=== PATIENT | female | born 1950 | race Caucasian/White ===

== ENCOUNTER 2022-01-22 10:25 | Inpatient (IN) ==
[2022-01-22 10:46] LABS: ABS Basophils 0.1 10^3/ul (0-0.2); ABS Lymphocytes 1.3 10^3/ul (1.0-4.8); ABS Monocytes 0.4 10^3/ul (0-0.8); ABS Neutrophils 2.8 10^3/ul (1.5-7.7); Eosinophil % 0.9 %; Hematocrit 47 % (35-47); Hemoglobin 15.4 g/dL (12.0-16.0); Lymphocyte % 27.7 %; Mean Corpuscular HGB Conc 33 g/dL (31-36); Mean Corpuscular Hemoglobin 29 pg (27-31); Mean Corpuscular Volume 88 fL (80-97); Mean Platelet Volume 10.3 fL (7.4-10.4); Platelet Count 197 10^3/uL (150-450); Red Blood Count 5.29 10^6 /uL (3.70-4.87); Red Cell Distribution Width 16 % (10-15); White Blood Count 4.6 10^3/uL (3.5-10.8)
[2022-01-22] MEDS ORDERED: Midazolam 5 mg/5 ml VIAL 1 mg/ml 5 ml VIAL (5 mg) ONE (10:58)
[2022-01-22] MEDS ORDERED: Heparin 1,000 UNIT/ML 10 ml (10,000 UNITS) CATHLAB/DIALYSIS ONE ×3 (10:59→11:22)
[2022-01-22] MEDS ORDERED: fentaNYL 100 mcg/2 ml 50 MCG/ML VIAL ONE (10:59)
[2022-01-22] MEDS ORDERED: VERAPAMIL 2.5 MG/ML 2 ML VIAL ** 5 mg/2 ml ONE (10:59)
[2022-01-22] MEDS ORDERED: Iohexol 350 (CONTRAST) 200 ML MDV IV ONE (10:59)
[2022-01-22] MEDS ORDERED: nitroGLYCERIN DRIP 25,000 MCG/250 ML BTL ONE (10:59)
[2022-01-22] MEDS ORDERED: Heparin 2 UNITS/ML 1000 mls 3,000 ML IV ONE (10:59)
[2022-01-22] MEDS ORDERED: Lidocaine 1% MPF 5 ML VIAL ONE (11:06)
[2022-01-22] MEDS ORDERED: Bivalirudin 250 MG VIAL ONE (11:17)
[2022-01-22 11:24] LABS: Albumin 4.1 g/dL (3.2-5.2); Albumin/Globulin Ratio 1.1 (1-3); Calcium 9.2 mg/dL (8.6-10.3); Globulin 3.9 g/dL (2-4); Magnesium 1.8 mg/dL (1.9-2.7); Potassium 4.3 mmol/L (3.5-5.0); Total Bilirubin 0.9 mg/dL (0.2-1.0); eGFR CKD-EPI 76.6 (>60)
[2022-01-22] MEDS ORDERED: Ondansetron 4 mg VIAL 2 MG/ML 2 ml VIAL ONE (12:38)
[2022-01-22] MEDS ORDERED: Norepinephrine 16MCG/ML BAG NS 0 MCG/0 ML BAG IV ONE (12:41)
[2022-01-22] MEDS ORDERED: DOPamine 800 MG/250 ML IVPREM 800 MG/250 ML ML CENTR ONE (12:53)
[2022-01-22] MEDS ORDERED: Atropine 0.1 MG/ML 10 ml SYR (1 mg) ONE (13:13)
[2022-01-22] MEDS ORDERED: NS 0.9% 1000 ml BAG 1,000 ML IV SCH (14:00)
[2022-01-23 04:00] LABS: ABS Basophils 0.1 10^3/ul (0-0.2); ABS Lymphocytes 1.2 10^3/ul (1.0-4.8); ABS Monocytes 0.8 10^3/ul (0-0.8); ABS Neutrophils 3.7 10^3/ul (1.5-7.7); Eosinophil % 0.4 %; Hematocrit 37 % (35-47); Hemoglobin 12.1 g/dL (12.0-16.0); Lymphocyte % 20.7 %; Mean Corpuscular HGB Conc 33 g/dL (31-36); Mean Corpuscular Hemoglobin 29 pg (27-31); Mean Corpuscular Volume 86 fL (80-97); Mean Platelet Volume 9.9 fL (7.4-10.4); Platelet Count 156 10^3/uL (150-450); Red Blood Count 4.24 10^6 /uL (3.70-4.87); Red Cell Distribution Width 15 % (10-15); White Blood Count 5.8 10^3/uL (3.5-10.8)
[2022-01-23 04:34] LABS: Calcium 8.6 mg/dL (8.6-10.3); HDL Cholesterol 41.9 mg/dL; Potassium 3.5 mmol/L (3.5-5.0); eGFR CKD-EPI 92.6 (>60)
[2022-01-23] MEDS ORDERED: Potassium Chloride LIQUID 20 MEQ/15 ML LIQUID PO ONE (05:11)
[2022-01-23 05:36] LABS: Magnesium 1.6 mg/dL (1.9-2.7)
[2022-01-23] MEDS ORDERED: Magnesium Sulfate 2 gm BAG 2 GM/50 ML BAG IVPB ONE (05:41)
[2022-01-23] MEDS ORDERED: Perflutren Lipid Microsphere 3 ML VIAL ONE (09:58)
[2022-01-24 04:37] LABS: ABS Lymphocytes 0.9 10^3/ul (1.0-4.8); ABS Monocytes 0.9 10^3/ul (0-0.8); ABS Neutrophils 4.6 10^3/ul (1.5-7.7); Eosinophil % 0.1 %; Hematocrit 39 % (35-47); Hemoglobin 13.1 g/dL (12.0-16.0); Lymphocyte % 14.4 %; Mean Corpuscular HGB Conc 33 g/dL (31-36); Mean Corpuscular Hemoglobin 29 pg (27-31); Mean Corpuscular Volume 87 fL (80-97); Mean Platelet Volume 10.6 fL (7.4-10.4); Platelet Count 150 10^3/uL (150-450); Red Blood Count 4.48 10^6 /uL (3.70-4.87); Red Cell Distribution Width 15 % (10-15); White Blood Count 6.5 10^3/uL (3.5-10.8)
[2022-01-24 10:05] LABS: Urine Appearance Cloudy; Urine Bilirubin Negative (Negative); Urine Blood Negative (Negative); Urine Color Yellow; Urine Glucose Negative (Negative); Urine Ketones Negative (Negative); Urine Nitrite Negative (Negative); Urine Protein Negative (Negative); Urine Specific Gravity 1.013 (1.002-1.030); Urine Urobilinogen Negative (Negative)
[2022-01-24 10:12] LABS: Rapid COVID-19 Molecular Undetected (Undetected)
[2022-01-24 11:50] VITALS: BP 108/57
== END 2022-01-24 14:10 | disposition home or self-care (01) | DRG 247 ==
LOC: EDSEX → ED 10:25 → CHICATH 11:11 → MERGE 14:06 → ICU 14:06 → MEDTELE 01-23 18:33
PROVIDERS: ATTEND Internal Medicine Cardiovascular Disease

== ENCOUNTER 2022-01-26 15:40 | Inpatient (IN) ==
[2022-01-26 16:41] LABS: ABS Lymphocytes 0.8 10^3/ul (1.0-4.8); ABS Monocytes 0.8 10^3/ul (0-0.8); ABS Neutrophils 3.4 10^3/ul (1.5-7.7); Eosinophil % 0.4 %; Hematocrit 35 % (35-47); Hemoglobin 11.6 g/dL (12.0-16.0); Mean Corpuscular HGB Conc 33 g/dL (31-36); Mean Corpuscular Hemoglobin 29 pg (27-31); Mean Corpuscular Volume 89 fL (80-97); Platelet Count 151 10^3/uL (150-450); Red Blood Count 3.99 10^6 /uL (3.70-4.87); Red Cell Distribution Width 15 % (10-15); White Blood Count 5.1 10^3/uL (3.5-10.8)
[2022-01-26 17:12] LABS: ALT 19 U/L (7-52); AST 28 U/L (13-39); Albumin 3.8 g/dL (3.2-5.2); Albumin/Globulin Ratio 1.2 (1-3); Alkaline Phosphatase 77 U/L (35-149); Anion Gap 9 mmol/L (2-11); Blood Urea Nitrogen 14 mg/dL (6-24); C Reactive Protein 109.74 mg/L (<8.01); CO2 Carbon Dioxide 23 mmol/L (22-32); Calcium 8.5 mg/dL (8.6-10.3); Chloride 99 mmol/L (101-111); Globulin 3.3 g/dL (2-4); Glucose 95 mg/dL (70-100); Potassium 3.2 mmol/L (3.5-5.0); Sodium 131 mmol/L (135-145); Total Protein 7.1 g/dL (6.4-8.9); eGFR CKD-EPI 91.3 (>60)
[2022-01-26] MEDS ORDERED: Potassium Chlor 20 meq TAB.ER PO ONE (17:56)
[2022-01-26 20:15] LABS: High Sensitivity Troponin 1 Hr 2478 pg/mL (<15)
[2022-01-26 21:20] LABS: Alcohol, S < 13 mg/dL (<13)
[2022-01-26] MEDS: Enoxaparin 40 MG/0.4 ML SYR SUBCUT SCH (22:11)
[2022-01-26 22:14] LABS: Magnesium 1.9 mg/dL (1.9-2.7)
[2022-01-26 22:19] LABS: Creatine Kinase 50 U/L (10-223)
[2022-01-26] MEDS ORDERED: Magnesium Sulfate 2 gm BAG 2 GM/50 ML BAG IVPB ONE (22:21)
[2022-01-26 22:27] LABS: High Sensitivity Troponin 3 Hr 2529 pg/mL (<15)
[2022-01-27 00:44] LABS: Erythrocyte Sed Rate 61 mm/Hr (0-29)
[2022-01-27 06:12] LABS: ABS Lymphocytes 0.8 10^3/ul (1.0-4.8); ABS Monocytes 0.7 10^3/ul (0-0.8); Eosinophil % 0.3 %; Hematocrit 35 % (35-47); Hemoglobin 11.5 g/dL (12.0-16.0); Lymphocyte % 17.1 %; Mean Corpuscular HGB Conc 33 g/dL (31-36); Mean Corpuscular Hemoglobin 29 pg (27-31); Mean Corpuscular Volume 87 fL (80-97); Mean Platelet Volume 11.3 fL (7.4-10.4); Platelet Count 150 10^3/uL (150-450); Red Blood Count 3.98 10^6 /uL (3.70-4.87); Red Cell Distribution Width 15 % (10-15); White Blood Count 4.6 10^3/uL (3.5-10.8)
[2022-01-27 06:20] LABS: Calcium 8.6 mg/dL (8.6-10.3); Magnesium 2.3 mg/dL (1.9-2.7); Potassium 4.2 mmol/L (3.5-5.0); eGFR CKD-EPI 92.9 (>60)
[2022-01-27 10:20] LABS: Urine Appearance Clear; Urine Bilirubin Negative (Negative); Urine Blood Negative (Negative); Urine Color Yellow; Urine Glucose Negative (Negative); Urine Ketones Trace (Negative); Urine Nitrite Negative (Negative); Urine Protein Negative (Negative); Urine Specific Gravity 1.012 (1.002-1.030); Urine Urobilinogen Negative (Negative)
[2022-01-27] MEDS ORDERED: Nicotine PATCH 7 MG/24 HR PATCH TRANSDERM SCH (11:00)
[2022-01-27] MEDS ORDERED: Nicotine GUM 4MG FRUIT FLAVOR PO PRN (11:11)
[2022-01-27] MEDS ORDERED: Perflutren Lipid Microsphere 3 ML VIAL ONE (13:45)
[2022-01-27] MEDS: Nicotine PATCH 21 MG/24 HR PATCH TRANSDERM SCH (18:03)
[2022-01-27] MEDS: Enoxaparin 40 MG/0.4 ML SYR SUBCUT SCH (21:25)
[2022-01-28 06:06] LABS: ABS Lymphocytes 1.1 10^3/ul (1.0-4.8); ABS Monocytes 0.6 10^3/ul (0-0.8); ABS Neutrophils 1.9 10^3/ul (1.5-7.7); Eosinophil % 1.1 %; Hematocrit 36 % (35-47); Hemoglobin 11.6 g/dL (12.0-16.0); Lymphocyte % 30.8 %; Mean Corpuscular HGB Conc 32 g/dL (31-36); Mean Corpuscular Hemoglobin 28 pg (27-31); Mean Corpuscular Volume 88 fL (80-97); Mean Platelet Volume 10.7 fL (7.4-10.4); Nucleated Red Blood Cells % 0.2; Platelet Count 175 10^3/uL (150-450); Red Blood Count 4.07 10^6 /uL (3.70-4.87); Red Cell Distribution Width 15 % (10-15); White Blood Count 3.7 10^3/uL (3.5-10.8)
[2022-01-28 06:46] LABS: Calcium 8.8 mg/dL (8.6-10.3); Magnesium 1.9 mg/dL (1.9-2.7); Potassium 4.2 mmol/L (3.5-5.0); eGFR CKD-EPI 92.2 (>60)
[2022-01-28] MEDS ORDERED: Nicotine PATCH 21 MG/24 HR PATCH TRANSDERM SCH (08:00)
[2022-01-28 08:36] VITALS: BP 126/63
[2022-01-28] MEDS: Nicotine PATCH 21 MG/24 HR PATCH TRANSDERM SCH (08:48)
[2022-01-30 09:05] LABS: Complement C3 113 mg/dL (75 - 175)
== END 2022-01-28 12:50 | disposition home or self-care (01) | DRG 315 ==
LOC: ED 15:40 → SUATTDRO 21:42 → EDHOLD 21:42 → MEDTELE 01-27 00:31
PROVIDERS: ADMIT Internal Medicine; ATTEND Internal Medicine

== ENCOUNTER 2023-08-08 12:19 | Observation (INO) ==
[2023-08-08] MEDS ORDERED: Lactated Ringers 1000 ml BAG 1,000 ML IV ONE (12:33)
[2023-08-08] MEDS ORDERED: Albuterol/Ipratropium NEB.SOL (2.5/0.5 MG) 3 ML NEB.SOLN INH ONE (12:45)
[2023-08-08 13:24] LABS: ABS Basophils 0.1 10^3/uL (0.0-0.1); ABS Eosinophils 0.1 10^3/uL (0.0-0.5); ABS Lymphocytes 0.9 10^3/uL (1.0-4.8); ABS Monocytes 0.6 10^3/uL (0.0-0.9); ABS Neutrophils 5.9 10^3/uL (1.5-7.6); Eosinophil % 0.7 %; Hematocrit 34.8 % (35-45); Hemoglobin 11.4 g/dL (11.5-14.3); Lymphocyte % 11.5 %; Mean Corpuscular Hemoglobin 28.1 pg (27-33); Mean Corpuscular Hgb Conc 32.6 g/dL (31-36); Mean Corpuscular Volume 86.1 fL (80-97); Mean Platelet Volume 11.3 fL (7.5-11.2); Nucleated Red Blood Cells % 0.1 %/100WBC (0.0-0.8); Platelet Count 232 10^3/uL (150-450); Red Blood Count 4.04 10^6/uL (3.63-4.92); Red Cell Distribution Width 15.8 % (12-17); White Blood Count 7.5 10^3/uL (3.8-11.8)
[2023-08-08 13:36] LABS: PCO2 Arterial 38 mmHg (35-45); PO2 Arterial 81 mmHg (80-100)
[2023-08-08 13:37] LABS: Activated Partial Thrombo Time 35.1 seconds (26.0-38.0); INR 1.39 (0.83-1.13)
[2023-08-08 13:54] LABS: High Sens Troponin Baseline 32 pg/mL (<15)
[2023-08-08 13:55] LABS: ALT 65 U/L (7-52); Albumin 3.8 g/dL (3.2-5.2); Albumin/Globulin Ratio 1.1 (1-3); Alkaline Phosphatase 102 U/L (35-149); Anion Gap 9 mmol/L (2-16); Blood Urea Nitrogen 29 mg/dL (6-24); CO2 Carbon Dioxide 23 mmol/L (22-32); Calcium 8.9 mg/dL (8.6-10.3); Chloride 98 mmol/L (101-111); Cholesterol 167 mg/dL; Creatinine, Serum 0.52 mg/dL (0.51-0.95); Globulin 3.4 g/dL (2-4); Glucose 116 mg/dL (70-100); HDL Cholesterol 35.3 mg/dL; LDL Cholesterol 99 mg/dL; Sodium 130 mmol/L (135-145); Total Bilirubin 0.5 mg/dL (0.2-1.0); Total Protein 7.2 g/dL (6.4-8.9); Triglycerides 166 mg/dL; eGFR CKD-EPI 97.4 (>60)
[2023-08-08] MEDS ORDERED: NS 0.9% 1000 ml BAG 1,000 ML IV ONE (13:55)
[2023-08-08 15:06] LABS: Urine Appearance Cloudy; Urine Bilirubin Negative (Negative); Urine Blood 1+ (Negative); Urine Color Yellow; Urine Glucose 3+(>=500 mg/dL) (Negative); Urine Ketones Negative (Negative); Urine Nitrite Negative (Negative); Urine Protein Negative (Negative); Urine Specific Gravity 1.007 (1.002-1.030); Urine Urobilinogen Negative (Negative)
[2023-08-08 15:10] LABS: Urine Bacteria 1+ (Absent); Urine Red Blood Cell 1+(3-5/hpf) (Absent); Urine Squamous Epithelial Cell Present (Absent); Urine White Blood Cell 3+(>20/hpf) (Absent)
[2023-08-08] MEDS ORDERED: cefTRIAXone 1 gm/50 mL D5W 1 GM/50 ML BAG IV ONE (15:15)
[2023-08-08 15:26] LABS: Potassium Redraw 3.9 mmol/L (3.5-5.0)
[2023-08-08 15:28] LABS: Urine Benzodiazepine Screen None Detected (None Detect); Urine Cannabinoids Screen None Detected (None Detect); Urine Opiates Screen None Detected (None Detect)
[2023-08-08 15:53] LABS: High Sensitivity Troponin 1 Hr 35 pg/mL (<15)
[2023-08-08] MEDS ORDERED: Albuterol HFA INHALER 8 gm MDI INH PRN (16:53)
[2023-08-09 06:17] LABS: ABS Lymphocytes 0.9 10^3/uL (1.0-4.8); ABS Monocytes 0.5 10^3/uL (0.0-0.9); ABS Neutrophils 2.3 10^3/uL (1.5-7.6); Eosinophil % 0.9 %; Hematocrit 30.6 % (35-45); Hemoglobin 10.2 g/dL (11.5-14.3); Lymphocyte % 24.7 %; Mean Corpuscular Hemoglobin 28.5 pg (27-33); Mean Corpuscular Hgb Conc 33.2 g/dL (31-36); Mean Corpuscular Volume 85.6 fL (80-97); Mean Platelet Volume 10.8 fL (7.5-11.2); Nucleated Red Blood Cells % 0.1 %/100WBC (0.0-0.8); Platelet Count 205 10^3/uL (150-450); Red Blood Count 3.58 10^6/uL (3.63-4.92); Red Cell Distribution Width 15.5 % (12-17); White Blood Count 3.7 10^3/uL (3.8-11.8)
[2023-08-09 06:38] LABS: Calcium 8.9 mg/dL (8.6-10.3); Creatinine, Serum 0.39 mg/dL (0.51-0.95); Potassium 3.7 mmol/L (3.5-5.0); eGFR CKD-EPI 104.4 (>60)
[2023-08-09] MEDS: DULoxetine DR 60 mg CAP PEG TUBE SCH (09:12)
[2023-08-09] MEDS ORDERED: cefTRIAXone 1 gm/50 mL D5W 1 GM/50 ML BAG IV SCH (16:00)
[2023-08-09] MEDS: cefTRIAXone 1 gm/50 mL D5W 1 GM/50 ML BAG IV SCH (16:00)
[2023-08-10] MEDS: DULoxetine DR 60 mg CAP PEG TUBE SCH (07:56)
[2023-08-10 16:21] LABS: Magnesium 1.7 mg/dL (1.9-2.7)
[2023-08-10] MEDS: cefTRIAXone 1 gm/50 mL D5W 1 GM/50 ML BAG IV SCH (16:27)
[2023-08-10 17:24] LABS: Urine Appearance Cloudy; Urine Bilirubin Negative (Negative); Urine Blood Negative (Negative); Urine Color Yellow; Urine Glucose 3+(>=500 mg/dL) (Negative); Urine Ketones Trace (Negative); Urine Nitrite Negative (Negative); Urine Protein 1+(30 mg/dL) (Negative); Urine Specific Gravity 1.023 (1.002-1.030); Urine Urobilinogen Negative (Negative)
[2023-08-10 17:31] LABS: Urine Bacteria Absent (Absent); Urine Red Blood Cell Trace(0-2/hpf) (Absent); Urine Squamous Epithelial Cell Present (Absent); Urine White Blood Cell Trace(0-5/hpf) (Absent)
[2023-08-10] MEDS ORDERED: Magnesium Sulfate 2 gm BAG 2 GM/50 ML BAG IVPB ONE (17:32)
[2023-08-11 09:51] LABS: ABS Lymphocytes 0.7 10^3/uL (1.0-4.8); ABS Monocytes 0.6 10^3/uL (0.0-0.9); ABS Neutrophils 2.3 10^3/uL (1.5-7.6); Eosinophil % 0.9 %; Hematocrit 30.6 % (35-45); Hemoglobin 10.4 g/dL (11.5-14.3); Lymphocyte % 20.1 %; Mean Corpuscular Hemoglobin 28.4 pg (27-33); Mean Corpuscular Hgb Conc 33.9 g/dL (31-36); Mean Platelet Volume 10.4 fL (7.5-11.2); Platelet Count 220 10^3/uL (150-450); Red Blood Count 3.65 10^6/uL (3.63-4.92); Red Cell Distribution Width 15.3 % (12-17); White Blood Count 3.7 10^3/uL (3.8-11.8)
[2023-08-11 10:05] LABS: Calcium 8.7 mg/dL (8.6-10.3); Creatinine, Serum 0.44 mg/dL (0.51-0.95); Magnesium 2.2 mg/dL (1.9-2.7); Potassium 3.8 mmol/L (3.5-5.0); eGFR CKD-EPI 101.4 (>60)
[2023-08-11] MEDS: DULoxetine DR 60 mg CAP PEG TUBE SCH (10:10)
[2023-08-12 06:46] LABS: Hematocrit 31.7 % (35-45); Hemoglobin 10.5 g/dL (11.5-14.3); Mean Corpuscular Hemoglobin 28.3 pg (27-33); Mean Corpuscular Hgb Conc 33.1 g/dL (31-36); Mean Corpuscular Volume 85.5 fL (80-97); Mean Platelet Volume 11.1 fL (7.5-11.2); Platelet Count 203 10^3/uL (150-450); Red Blood Count 3.71 10^6/uL (3.63-4.92); Red Cell Distribution Width 15.7 % (12-17); White Blood Count 3.9 10^3/uL (3.8-11.8)
[2023-08-12 07:05] LABS: Calcium 8.6 mg/dL (8.6-10.3); Creatinine, Serum 0.44 mg/dL (0.51-0.95); Magnesium 1.9 mg/dL (1.9-2.7); eGFR CKD-EPI 101.4 (>60)
[2023-08-12 07:57] LABS: ABS Basophils 0.2 10^3/uL (0.0-0.1); ABS Lymphocytes 0.7 10^3/uL (1.0-4.8); ABS Monocytes 0.6 10^3/uL (0.0-0.9); ABS Neutrophils 2.5 10^3/uL (1.5-7.6); ABS Nucleated RBC 0.01 10^3/ul; Eosinophil % 0.8 %; Lymphocyte % 16.9 %; Nucleated Red Blood Cells % 0.3 %/100WBC (0.0-0.8)
[2023-08-12] MEDS ORDERED: Cefdinir SUSP ORALSYR 50 MG/ML (250 mg/5 ml) PEG TUBE SCH (09:19)
[2023-08-12] MEDS: DULoxetine DR 60 mg CAP PEG TUBE SCH (09:56)
[2023-08-12] MEDS: Cefdinir SUSP ORALSYR 50 MG/ML (250 mg/5 ml) PEG TUBE SCH ×2 (10:30→21:51)
[2023-08-13 06:27] LABS: ABS Eosinophils 0.1 10^3/uL (0.0-0.5); ABS Lymphocytes 0.8 10^3/uL (1.0-4.8); ABS Monocytes 0.6 10^3/uL (0.0-0.9); ABS Neutrophils 2.5 10^3/uL (1.5-7.6); Eosinophil % 1.3 %; Hematocrit 31.8 % (35-45); Hemoglobin 10.6 g/dL (11.5-14.3); Lymphocyte % 20.9 %; Mean Corpuscular Hemoglobin 28.2 pg (27-33); Mean Corpuscular Hgb Conc 33.3 g/dL (31-36); Mean Corpuscular Volume 84.5 fL (80-97); Mean Platelet Volume 10.9 fL (7.5-11.2); Nucleated Red Blood Cells % 0.1 %/100WBC (0.0-0.8); Platelet Count 223 10^3/uL (150-450); Red Blood Count 3.76 10^6/uL (3.63-4.92); Red Cell Distribution Width 15.6 % (12-17)
[2023-08-13 07:51] LABS: Calcium 8.9 mg/dL (8.6-10.3); Creatinine, Serum 0.47 mg/dL (0.51-0.95); Magnesium 1.8 mg/dL (1.9-2.7); Phosphorus 4.2 mg/dL (2.5-5.0); Potassium 4.2 mmol/L (3.5-5.0); eGFR CKD-EPI 99.8 (>60)
[2023-08-13] MEDS ORDERED: Magnesium Sulfate 2 gm BAG 2 GM/50 ML BAG IVPB ONE (08:04)
[2023-08-13] MEDS: DULoxetine DR 60 mg CAP PEG TUBE SCH (10:37)
[2023-08-13] MEDS: Cefdinir SUSP ORALSYR 50 MG/ML (250 mg/5 ml) PEG TUBE SCH ×2 (10:38→22:12)
[2023-08-14 06:27] LABS: ABS Basophils 0.1 10^3/uL (0.0-0.1); ABS Lymphocytes 0.7 10^3/uL (1.0-4.8); ABS Monocytes 0.6 10^3/uL (0.0-0.9); ABS Neutrophils 2.5 10^3/uL (1.5-7.6); ABS Nucleated RBC 0.01 10^3/ul; Eosinophil % 0.9 %; Hematocrit 31.5 % (35-45); Hemoglobin 10.4 g/dL (11.5-14.3); Lymphocyte % 18.4 %; Mean Platelet Volume 11.1 fL (7.5-11.2); Nucleated Red Blood Cells % 0.2 %/100WBC (0.0-0.8); Platelet Count 201 10^3/uL (150-450); Red Blood Count 3.71 10^6/uL (3.63-4.92); Red Cell Distribution Width 15.8 % (12-17); White Blood Count 3.9 10^3/uL (3.8-11.8)
[2023-08-14 06:32] LABS: Calcium 8.7 mg/dL (8.6-10.3); Creatinine, Serum 0.44 mg/dL (0.51-0.95); Magnesium 2.1 mg/dL (1.9-2.7); Potassium 4.3 mmol/L (3.5-5.0); eGFR CKD-EPI 101.4 (>60)
[2023-08-14] MEDS: Cefdinir SUSP ORALSYR 50 MG/ML (250 mg/5 ml) PEG TUBE SCH (09:51)
[2023-08-14] MEDS: DULoxetine DR 60 mg CAP PEG TUBE SCH (09:51)
[2023-08-14 10:11] VITALS: BP 131/69
[2023-08-14 11:18] LABS: Rapid COVID-19 Molecular Undetected (Undetected)
== END 2023-08-14 14:15 ==
LOC: ED 12:19 → EDHOLD 12:19 → SUATTDRO 15:33 → MEDTELE 20:01
PROVIDERS: ADMIT Internal Medicine; ATTEND Student in an Organized Health Care Education/Training Program

== ENCOUNTER 2023-08-20 13:08 | Inpatient (IN) ==
[2023-08-20 14:25] LABS: ABS Basophils 0.1 10^3/uL (0.0-0.1); ABS Eosinophils 0.1 10^3/uL (0.0-0.5); ABS Lymphocytes 0.7 10^3/uL (1.0-4.8); ABS Monocytes 0.6 10^3/uL (0.0-0.9); ABS Neutrophils 3.8 10^3/uL (1.5-7.6); Eosinophil % 1.6 %; Hematocrit 34.1 % (35-45); Hemoglobin 11.4 g/dL (11.5-14.3); Lymphocyte % 13.1 %; Mean Corpuscular Hemoglobin 28.2 pg (27-33); Mean Corpuscular Hgb Conc 33.5 g/dL (31-36); Mean Corpuscular Volume 84.2 fL (80-97); Nucleated Red Blood Cells % 0.1 %/100WBC (0.0-0.8); Platelet Count 234 10^3/uL (150-450); Red Blood Count 4.05 10^6/uL (3.63-4.92); Red Cell Distribution Width 15.6 % (12-17); White Blood Count 5.1 10^3/uL (3.8-11.8)
[2023-08-20 14:35] LABS: Urine Appearance Cloudy; Urine Bilirubin Negative (Negative); Urine Blood Negative (Negative); Urine Color Yellow; Urine Glucose 3+(>=500 mg/dL) (Negative); Urine Ketones Negative (Negative); Urine Nitrite Negative (Negative); Urine Protein Negative (Negative); Urine Specific Gravity 1.026 (1.002-1.030); Urine Urobilinogen Negative (Negative)
[2023-08-20] MEDS ORDERED: NS 0.9% 1000 ml BAG 1,000 ML IV ONE (14:37)
[2023-08-20] MEDS ORDERED: cefTRIAXone 1 gm/50 mL D5W 1 GM/50 ML BAG IV ONE (14:37)
[2023-08-20 14:56] LABS: Budding Yeast Present (Absent); Urine Bacteria Absent (Absent); Urine Red Blood Cell 3+(>10/hpf) (Absent); Urine Transitional Epithelial Present (Absent); Urine White Blood Cell 3+(>20/hpf) (Absent); Urine Yeast Present (Absent)
[2023-08-20 15:29] LABS: High Sensitivity Troponin 1 Hr 36 pg/mL (<15)
[2023-08-20 15:41] LABS: TSH Ultra Thyroid Stim Horm 2.54 mcIU/mL (0.34-5.60)
[2023-08-20 16:21] LABS: Albumin 3.8 g/dL (3.2-5.2); Albumin/Globulin Ratio 1.2 (1-3); Calcium 9.3 mg/dL (8.6-10.3); Creatinine, Serum 0.57 mg/dL (0.51-0.95); Globulin 3.3 g/dL (2-4); Magnesium 1.8 mg/dL (1.9-2.7); Potassium 4.2 mmol/L (3.5-5.0); Total Bilirubin 0.4 mg/dL (0.2-1.0); Total Protein 7.1 g/dL (6.4-8.9); eGFR CKD-EPI 95.3 (>60)
[2023-08-20] MEDS ORDERED: Iodixanol (CONTRAST) 320 MG/ML 100 ML SDV IV ONE (16:42)
[2023-08-20] MEDS ORDERED: Remdesivir 200 mg LOADING DOSE X1 IV ONE (18:45)
[2023-08-21 06:53] LABS: ABS Eosinophils 0.1 10^3/uL (0.0-0.5); ABS Lymphocytes 0.9 10^3/uL (1.0-4.8); ABS Monocytes 0.7 10^3/uL (0.0-0.9); Eosinophil % 1.4 %; Hematocrit 31.7 % (35-45); Hemoglobin 10.5 g/dL (11.5-14.3); Lymphocyte % 24.1 %; Mean Corpuscular Hemoglobin 28.1 pg (27-33); Mean Corpuscular Hgb Conc 33.2 g/dL (31-36); Mean Corpuscular Volume 84.5 fL (80-97); Mean Platelet Volume 10.6 fL (7.5-11.2); Nucleated Red Blood Cells % 0.1 %/100WBC (0.0-0.8); Platelet Count 200 10^3/uL (150-450); Red Blood Count 3.75 10^6/uL (3.63-4.92); Red Cell Distribution Width 15.8 % (12-17); White Blood Count 3.6 10^3/uL (3.8-11.8)
[2023-08-21 07:08] LABS: Calcium 8.8 mg/dL (8.6-10.3); Creatinine, Serum 0.42 mg/dL (0.51-0.95); Potassium 3.9 mmol/L (3.5-5.0); eGFR CKD-EPI 102.6 (>60)
[2023-08-21 08:21] LABS: Magnesium 1.7 mg/dL (1.9-2.7)
[2023-08-21] MEDS ORDERED: Magnesium Sulfate 2 gm BAG 2 GM/50 ML BAG IVPB ONE (08:28)
[2023-08-21] MEDS: DULoxetine DR 60 mg CAP G TUBE SCH (10:50)
[2023-08-21] MEDS: Potassium Chloride LIQUID 20 MEQ/15 ML LIQUID PEG TUBE SCH (10:50)
[2023-08-21 12:10] LABS: Ferritin 298.4 ng/mL (11-307)
[2023-08-21] MEDS: cefTRIAXone 1 gm/50 mL D5W 1 GM/50 ML BAG IV SCH (13:51)
[2023-08-21] MEDS ORDERED: cefTRIAXone 1 gm/50 mL D5W 1 GM/50 ML BAG IV SCH (14:00)
[2023-08-22] MEDS: Remdesivir 100 mg Vial 100 MG in NS 0.9% 250 ml 230 ML IV SCH ×2 (00:36→21:00)
[2023-08-22 07:43] LABS: ABS Basophils 0.1 10^3/uL (0.0-0.1); ABS Eosinophils 0.1 10^3/uL (0.0-0.5); ABS Lymphocytes 0.8 10^3/uL (1.0-4.8); ABS Monocytes 0.6 10^3/uL (0.0-0.9); ABS Neutrophils 2.8 10^3/uL (1.5-7.6); ABS Nucleated RBC 0.01 10^3/ul; Eosinophil % 2.1 %; Hematocrit 30.1 % (35-45); Hemoglobin 10.1 g/dL (11.5-14.3); Lymphocyte % 18.4 %; Mean Corpuscular Hemoglobin 28.1 pg (27-33); Mean Corpuscular Hgb Conc 33.5 g/dL (31-36); Mean Corpuscular Volume 83.7 fL (80-97); Mean Platelet Volume 10.6 fL (7.5-11.2); Nucleated Red Blood Cells % 0.1 %/100WBC (0.0-0.8); Platelet Count 191 10^3/uL (150-450); Red Blood Count 3.59 10^6/uL (3.63-4.92); Red Cell Distribution Width 15.1 % (12-17); White Blood Count 4.4 10^3/uL (3.8-11.8)
[2023-08-22 08:02] LABS: Calcium 8.5 mg/dL (8.6-10.3); Creatinine, Serum 0.41 mg/dL (0.51-0.95); Potassium 3.7 mmol/L (3.5-5.0); eGFR CKD-EPI 103.2 (>60)
[2023-08-22] MEDS ORDERED: Albuterol HFA INHALER 8 gm MDI INH PRN (09:42)
[2023-08-22] MEDS: DULoxetine DR 60 mg CAP G TUBE SCH (10:49)
[2023-08-22] MEDS: Potassium Chloride LIQUID 20 MEQ/15 ML LIQUID PEG TUBE SCH (10:49)
[2023-08-22] MEDS: cefTRIAXone 1 gm/50 mL D5W 1 GM/50 ML BAG IV SCH (14:11)
[2023-08-23] MEDS: Potassium Chloride LIQUID 20 MEQ/15 ML LIQUID PEG TUBE SCH (10:37)
[2023-08-23] MEDS: DULoxetine DR 60 mg CAP G TUBE SCH (10:38)
[2023-08-23] MEDS ORDERED: Lactated Ringers 1000 ml BAG 500 ML IV ONE (17:46)
[2023-08-23] MEDS: Remdesivir 100 mg Vial 100 MG in NS 0.9% 250 ml 230 ML IV SCH (22:38)
[2023-08-24] MEDS: Potassium Chloride LIQUID 20 MEQ/15 ML LIQUID PEG TUBE SCH (10:20)
[2023-08-24] MEDS: DULoxetine DR 60 mg CAP G TUBE SCH (10:20)
[2023-08-24 14:25] VITALS: BP 111/66
== END 2023-08-24 16:05 | DRG 64 ==
LOC: ED 13:08 → EDHOLD 13:08 → MEDTELE 21:15
PROVIDERS: ADMIT Student in an Organized Health Care Education/Training Program; ATTEND Student in an Organized Health Care Education/Training Program

== ENCOUNTER 2024-08-07 13:27 | Observation (INO) ==
[2024-08-07 14:54] LABS: ABS Lymphocytes 0.8 10^3/uL (1.0-4.8); ABS Monocytes 0.6 10^3/uL (0.0-0.9); ABS Neutrophils 4.3 10^3/uL (1.5-7.6); ABS Nucleated RBC 0.01 10^3/ul; Eosinophil % 0.7 %; Hematocrit 39.3 % (35-45); Hemoglobin 13.2 g/dL (11.5-14.3); Lymphocyte % 14.4 %; Mean Corpuscular Hgb Conc 33.7 g/dL (31-36); Mean Corpuscular Volume 83.1 fL (80-97); Mean Platelet Volume 11.5 fL (7.5-11.2); Nucleated Red Blood Cells % 0.1 %/100WBC (0.0-0.8); Platelet Count 201 10^3/uL (150-450); Red Blood Count 4.72 10^6/uL (3.63-4.92); Red Cell Distribution Width 14.7 % (12-17); White Blood Count 5.8 10^3/uL (3.8-11.8)
[2024-08-07 14:58] LABS: INR 1.43 (0.85-1.14)
[2024-08-07 15:16] LABS: Albumin 4.3 g/dL (3.5-5.7); Albumin/Globulin Ratio 1.3 (1-3); Calcium 9.9 mg/dL (8.6-10.3); Creatinine, Serum 0.66 mg/dL (0.51-0.95); Globulin 3.3 g/dL (2-4); Magnesium 2.1 mg/dL (1.9-2.7); Potassium 4.7 mmol/L (3.5-5.0); Total Bilirubin 0.4 mg/dL (0.2-1.0); Total Protein 7.6 g/dL (6.4-8.9); eGFR CKD-EPI 91.4 (>60)
[2024-08-07 15:30] LABS: TSH Ultra Thyroid Stim Horm 1.5 mcIU/mL (0.34-5.60)
[2024-08-07 16:17] LABS: High Sensitivity Troponin 1 Hr 19 pg/mL (<15)
[2024-08-07 17:00] LABS: Urine Bacteria 1+ /HPF (Absent); Urine Red Blood Cell 3+(>10/hpf) /HPF (0-Trace); Urine White Blood Cell 2+(11-20/hpf) /HPF (0-Trace)
[2024-08-07 17:02] LABS: Urine Appearance Clear; Urine Bilirubin Negative (Negative); Urine Blood Trace (Intact) (Negative); Urine Color Yellow; Urine Ketones 1+ (15mg/dL) (Negative); Urine Protein Negative (Negative)
[2024-08-07 17:03] LABS: Urine Nitrite Positive (Negative); Urine Urobilinogen 0.2 (Negative) (Negative)
[2024-08-08] MEDS: Lactated Ringers 1000 ml BAG 1,000 ML IV SCH (02:31)
[2024-08-08 06:19] LABS: ABS Lymphocytes 1.3 10^3/uL (1.0-4.8); ABS Monocytes 0.4 10^3/uL (0.0-0.9); ABS Neutrophils 2.1 10^3/uL (1.5-7.6); ABS Nucleated RBC 0.01 10^3/ul; Eosinophil % 0.8 %; Hematocrit 37.1 % (35-45); Hemoglobin 12.3 g/dL (11.5-14.3); Lymphocyte % 33.4 %; Mean Corpuscular Hemoglobin 27.5 pg (27-33); Mean Corpuscular Hgb Conc 33.1 g/dL (31-36); Mean Corpuscular Volume 83.1 fL (80-97); Mean Platelet Volume 11.6 fL (7.5-11.2); Nucleated Red Blood Cells % 0.2 %/100WBC (0.0-0.8); Platelet Count 180 10^3/uL (150-450); Red Blood Count 4.47 10^6/uL (3.63-4.92); Red Cell Distribution Width 14.8 % (12-17); White Blood Count 3.8 10^3/uL (3.8-11.8)
[2024-08-08 06:45] LABS: Calcium 9.6 mg/dL (8.6-10.3); Creatinine, Serum 0.5 mg/dL (0.51-0.95); Magnesium 1.9 mg/dL (1.9-2.7); Potassium 3.9 mmol/L (3.5-5.0); eGFR CKD-EPI 97.7 (>60)
[2024-08-08] MEDS: Magnesium Sulfate 2 gm BAG 2 GM/50 ML BAG IVPB ONE (09:40)
[2024-08-09 06:25] LABS: ABS Eosinophils 0.1 10^3/uL (0.0-0.5); ABS Lymphocytes 1.2 10^3/uL (1.0-4.8); ABS Monocytes 0.6 10^3/uL (0.0-0.9); ABS Neutrophils 2.1 10^3/uL (1.5-7.6); Eosinophil % 1.4 %; Hematocrit 39.7 % (35-45); Hemoglobin 13.2 g/dL (11.5-14.3); Lymphocyte % 29.8 %; Mean Corpuscular Hgb Conc 33.2 g/dL (31-36); Mean Corpuscular Volume 84.4 fL (80-97); Mean Platelet Volume 11.4 fL (7.5-11.2); Nucleated Red Blood Cells % 0.1 %/100WBC (0.0-0.8); Platelet Count 171 10^3/uL (150-450); Red Cell Distribution Width 14.9 % (12-17)
[2024-08-09 06:49] LABS: Calcium 9.3 mg/dL (8.6-10.3); Creatinine, Serum 0.5 mg/dL (0.51-0.95); Magnesium 1.7 mg/dL (1.9-2.7); Potassium 4.4 mmol/L (3.5-5.0); eGFR CKD-EPI 97.7 (>60)
[2024-08-09] MEDS: Magnesium Sulfate 2 gm BAG 2 GM/50 ML BAG IVPB ONE (08:07)
[2024-08-09 13:26] VITALS: BP 132/62
== END 2024-08-09 16:30 | disposition home or self-care (01) ==
LOC: ED 13:27 → EDHOLD 13:27 → MEDTELE 23:28
PROVIDERS: ADMIT Student in an Organized Health Care Education/Training Program; ATTEND Student in an Organized Health Care Education/Training Program